=== PATIENT | male | born 1950 | race Two or more races ===

== ENCOUNTER → 2017-01-07 | Outpatient (CLI) | payer BC ==
--- NOTE | 2017-01-07 09:39 | RAD ---
Left knee, 3 views, 01/07/2017: History: Knee pain There is moderate patchy bony demineralization. No fracture or dislocation is identified. The joint space is fairly well preserved. No significant joint effusion is seen. Arterial calcifications are present posteriorly. Several surgical clips are present in the soft tissues. IMPRESSION: 1. Moderate patchy bony demineralization. 2. No acute bony abnormality is detected.
== END | disposition home or self-care (01) ==
LOC: DXRADRC 09:13
PROVIDERS: ATTEND Physician Assistant
DX: M25.562 Pain in left knee (principal)
CPT/HCPCS: 73562

== ENCOUNTER → 2021-01-25 | Outpatient (CLI) | payer MEDICARE, BC ==
--- NOTE | 2021-01-25 11:01 | RAD ---
Chest radiograph 01/25/2021 10:45 AM INDICATION: April COMPARISON: None available TECHNIQUE: Frontal and lateral views of the chest are provided. FINDINGS: The cardiomediastinal silhouette is within normal limits. Pulmonary emphysematous changes are present . There is a nodular opacity in the left suprahilar region measuring 1.7 cm. This could be associated with the left first rib and. However, further catheterization with CT chest is recommended. Mild chr onic interstitial changes are present. Median sternotomy changes are present. There are no pleural effusions. There is no pulmonary vascular congestion. There is no pneumothorax. No focal consolidative change. No significant osseous abnormality is identified. IMPRESSION: COPD changes are present. Nodular opacity in left suprahilar region measures 1.7 cm. This could be as sociated with the first rib end. Further evaluation with CT chest is recommended. Electronically signed by: Kathy Philippe MD (01/25/2021 10:59 AM) [id number]
== END ==
LOC: RAD 10:36
DX: J44.9 Chronic obstructive pulmonary disease, unspecified (principal); R91.8 Other nonspecific abnormal finding of lung field; R63.4 Abnormal weight loss
CPT/HCPCS: 71046

== ENCOUNTER → 2021-02-06 | Outpatient (CLI) | payer MEDICARE, BC ==
--- NOTE | 2021-02-06 14:08 | RAD ---
Noncontrast CT scan of the chest compared to chest x-ray dated January 242020 for abnormal chest x-ra y, nodule seen on chest x-ray, smoking history, emphysema, history of 5 vessel heart bypass and coron markel artery stenting in 2013. TECHNIQUE: Contiguous axial CT images are obtained through the chest. 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 Sagittal and coronal reformations are evaluated. FINDINGS: Changes of centrilobular emphysema are present primarily in the apices. Nodular abnormality seen on chest x-ray corresponds to hyperostosis of the first rib. In the left lower lobe there is a tiny 3 mm nodule seen on series 5 image 162 which is too small to characterize. Anteriorly in the rig ht upper lobe on series 5 image 129, there is a 9 mm lobulated solid nodule which is somewhat suspici ous based on morphology. In the right lower lobe on series 5 image 174, there is a pleural-based nodu le measuring 4 mm, likely infectious or inflammatory. A second ill-defined 5 mm nodule is seen shell mold bonder iorly on image #146. A third nodule on the right is seen in the peripheral base the right upper lobe on image #129, also 5 mm and also likely infectious or inflammatory. No discretely There are postsurg ical changes of median sternotomy. No suspicious mediastinal, axillary, or hilar lymphadenopathy is s een. Coronary artery calcifications are seen in multiple distributions. Evaluation of the upper abdom inal organs is limited by lack of IV contrast, however no gross abnormalities are seen. No suspicious osteoblastic or osteolytic bone lesions are evident in any distribution. IMPRESSION: 1. 9 mm right upper lobe pulmonary nodule which is suspicious based on morphology, but would be diffi cult to biopsy given its small size. There are several smaller pulmonary nodules as well. Recommend t hree-month follow-up CT scan. 2. Emphysema. 3. Coronary artery calcifications. PQRS Compliance Statement: One or more of the following individualized dose reduction techniques were utilized for this examinat ion: 1. Automated exposure control 2. Adjustment of the mA and/or kV according to patient size 3. Use of iterative reconstruction technique Electronically signed by: Cortez Chang MD (02/06/2021 2:06 PM) [id number]
== END ==
LOC: CT 10:11
PROVIDERS: ATTEND Physician Assistant
DX: R91.8 Other nonspecific abnormal finding of lung field (principal); J43.9 Emphysema, unspecified; R93.89 Abnormal findings on diagnostic imaging of other specified body structures; I25.10 Atherosclerotic heart disease of native coronary artery without angina pectoris; R63.4 Abnormal weight loss; F17.200 Nicotine dependence, unspecified, uncomplicated
CPT/HCPCS: 71250

== ENCOUNTER → 2021-05-18 | Outpatient (CLI) | payer MEDICARE, BC ==
--- NOTE | 2021-05-18 10:48 | RAD ---
CT THORAX WO INDICATION: FOLLOW UP LUNG NODULE, SMOKER COMPARISON STUDY: 02/06/2021. TECHNIQUE: Unenhanced axial images were obtained through the lungs and upper abdomen. Coronal and sa gittal multiplanar reconstructions were also obtained. PQRS compliance statement: One or more of the following individualized dose reduction techniques were utilized for this examinat ion: 1. Automated exposure control 2. Adjustment of the mA and/or kV according to patient size 3. Use of iterative reconstruction technique FINDINGS: Lungs and Airways: There are a couple of small pulmonary nodules which remain stable, such as colon r ight upper lobe 9 mm nodule (series 5 image 133) and left lower lobe 6 mm (image 227). Paraseptal and centrilobular emphysema. Normal central airways. Pleura: The pleural spaces are normal. Heart and Mediastinum: The visualized thyroid gland is normal in size and attenuation. No axillary or supraclavicular lymphadenopathy. No mediastinal, hilar or retrocrural lymphadenopathy. Normal cardia c size. No pericardial effusion. Coronary artery atherosclerotic disease. Atherosclerosis of the thor acic aorta. Abdomen: The visualized abdominal organs demonstrate no abnormality. Bones and Soft Tissues: Degenerative changes of the spine. Median sternotomy. IMPRESSION: There are a couple of pulmonary nodules which remain stable. Given nodule size and patient's risk fac tors, continued surveillance is recommended with additional chest CT in 6 months time. Nodules are li fredo below size threshold for PET sensitivity. No thoracic lymphadenopathy. Electronically signed by: Jabari Hartley MD (05/18/2021 10:46 AM) [id number]
== END ==
LOC: CT 08:47
PROVIDERS: ATTEND Internal Medicine Pulmonary Disease
DX: R91.8 Other nonspecific abnormal finding of lung field (principal)
CPT/HCPCS: 71250

== ENCOUNTER → 2021-11-23 | Outpatient (CLI) | payer MEDICARE, BC ==
--- NOTE | 2021-11-23 12:50 | RAD ---
EXAMINATION: CT Chest Without IV contrast. INDICATION:71 years, Male, follow-up pulmonary nodule. COMPARISON: 05/18/2021. TECHNIQUE: Spiral CT was obtained from the jugular notch through the posterior costophrenic recess. S agittal and coronal reformats were obtained. Exposure: One or more of the following individualized dose reduction techniques were utilized for thi s examination: 1. Automated exposure control 2. Adjustment of the mA and/or kV according to patient size 3. Use of iterative reconstruction technique. FINDINGS: LUNGS/PLEURA: Central airways are patent. Similar moderate centrilobular and paraseptal pulmonary emp hysema. Patchy groundglass opacities in bilateral lower lobes. No pleural effusion or pneumothorax. S table 6 mm solid pulmonary nodule in the right upper lobe (series 2 image 45). Stable 5 mm solid pulm onary nodule in the left lower lobe (series 2 image 71). MEDIASTINUM: No pathologic mediastinal or hilar adenopathy. Unchanged nonspecific nonenlarged mediast inal lymph nodes. The thoracic aorta and pulmonary arteries are normal in caliber. The heart is sri l in size. No pericardial effusion. Severe calcified coronary atherosclerosis. The visualized thyroid and the esophagus are unremarkable. AXILLA/SOFT TISSUE: No supraclavicular or axillary adenopathy. Regional soft tissues are within sri l limits. UPPER ABDOMEN: Simple appearing 1.6 cm left renal cyst. Mildly atrophic pancreas with fat infiltratio n. Nonspecific bilateral perinephric fat stranding. BONES: No evidence of acute fractures or aggressive osseous lesions. Median sternotomy wires. Multile fidel degenerative changes in the spine. IMPRESSION: 1. Since January 2021, stable 6 mm solid pulmonary nodule in the right upper and 5 mm solid pulmonary n odule in the left lower lobes. 2. Similar moderate centrilobular and paraseptal pulmonary emphysema. 3. Patchy groundglass opacities in bilateral lower lobes, likely infectious/inflammatory. 4. Severe calcified coronary atherosclerosis. Electronically signed by: Samuel Herring MD (11/23/2021 12:48 PM) [facility]
== END ==
LOC: CT 09:08
PROVIDERS: ATTEND Internal Medicine Pulmonary Disease
DX: R91.8 Other nonspecific abnormal finding of lung field (principal); J43.2 Centrilobular emphysema; I25.10 Atherosclerotic heart disease of native coronary artery without angina pectoris; K86.89 Other specified diseases of pancreas
CPT/HCPCS: 71250